=== PATIENT | female | born 1995 | race Caucasian/White ===

== ENCOUNTER 2022-02-11 08:46 | Inpatient (IN) | payer OTHER ==
[~2022-02-11] VITALS: Ht 152.4 cm; Wt 3.2 kg
[~2022-02-11 08:46] MED LIST: ZANTAC150 MG PO
[2022-02-11] MEDS ORDERED: CHILDREN'S ASPI81 MG PO (09:52)
[2022-02-11] MEDS ORDERED: PRENATAL TABLE1 EAC1 PO (09:52)
[2022-02-14] MEDS ORDERED: IBUPROFEN800 MG PO (10:31)
== END 2022-02-14 17:26 | disposition home or self-care (01) | DRG 788 ==
LOC: LDR 08:46 → OB/GYN 08:46 → LDR 08:55 → OB/GYN 15:14
PROVIDERS: ADMIT Obstetrics & Gynecology; ATTEND Obstetrics & Gynecology
PROC: 4A1HXCZ Monitoring of Products of Conception, Cardiac Rate, External Approach (ICD-10-PCS; 2022-02-11)
PROC: 10D00Z1 Extraction of Products of Conception, Low, Open Approach (ICD-10-PCS; principal; 2022-02-11 21:00)
DX: O13.4 Gestational [pregnancy-induced] hypertension without significant proteinuria, complicating childbirth (principal); O62.0 Primary inadequate contractions; Z3A.38 38 weeks gestation of pregnancy; Z37.0 Single live birth